=== PATIENT | male | born 1955 | race Caucasian/White ===

== ENCOUNTER 2017-11-15 13:50 | Inpatient (IN) | payer OTHER ==
[2017-11-15] VITALS (12 sets, daily range): BP systolic 90–125; BP diastolic 46–70
[~2017-11-15] VITALS: Ht 175.3 cm; Wt 80.0 kg
--- NOTE | 2017-11-15 13:50 | NUR ---
PT'S PRIMARY RN IS Lola SOLIMAN, MARINA MICHEL RN
[2017-11-15 14:08] LABS: BE -18.7 mmol/L (-2 to +3); HCO3 13.7 mmol/L (22.0-26.0); PO2 103.9 mmHg (75.0-100.0)
[2017-11-15 14:09] LABS: PCO2 65.1 mmHg (35.0-45.0)
--- NOTE | 2017-11-15 14:19 | NUR ---
#2 CODE STARTED AT 1415, ROSC AT 1419. SEE CODE BLUE FLOWSHEETS X 2
--- NOTE | 2017-11-15 14:35 | EKG ---
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 CID : [id number] Requested By: Reggie Ortiz Order Number: [id number] MD: Chung Cote Measurements Intervals [employer] Rate: 80 P: 54 CA: 178 QRS: -73 QRSD: 115 T: 79 QT: 510 QTc: 589 Interpretive Statements Sinus tachycardia Ventricular bigeminy RBBB and LAFB Diffuse ST segment depression, consider ischemia Inferior infarct, old No previous ECG available for comparison Electronically Signed On 11-15-2017 14:35:01 CDT by Chung Cote [email or web address] <ELECTRONICALLY SIGNED> By: Chung Cote MD, [facility] 11/15/17 1435 1410 1410 Chung Cote MD, [facility] /EPI
[2017-11-15 14:40] LABS: HEMATOCRIT 36.3 % (42.0-52.0); HEMOGLOBIN 11.1 gm/dL (14.0-18.0); MCH 23.8 pg (26.0-34.0); MCHC 30.5 g/dL (28.0-37.0); MCV 78.1 fL (80.0-100.0); MPV 8.3 fl. (7.2-11.1); NUCLEATED RBCS 4 /100WBC; PLATELET COUNT* 90 thou/uL (150-400); RBC 4.64 mil/uL (4.50-6.00); RDW-CV 15.3 % (10.5-14.5); WBC 9.8 thou/uL (4.0-11.0)
[2017-11-15 14:45] LABS: APTT 39.4 Seconds (25.0-31.3); INR 1.4; PROTIME 13.5 Seconds (9.20-11.50)
[2017-11-15 14:48] LABS: CALCIUM 6.7 mg/dL (8.5-10.1); CREATININE 1.2 mg/dL (0.6-1.3); POTASSIUM 4.9 mmol/L (3.5-5.1)
[2017-11-15 15:11] LABS: ALBUMIN 2.5 g/dL (3.4-5.0); CK-MB MASS 2.6 ng/mL (<0.5-3.6); MAGNESIUM 2.8 mg/dL (1.8-2.4); TOTAL BILIRUBIN 0.5 mg/dL (<0.1-1.0); TOTAL PROTEIN 5.1 g/dL (6.4-8.2); TROPONIN-I LEVEL 0.55 ng/mL (<0.06)
--- NOTE | 2017-11-15 15:20 | NUR ---
LEVOPHED INCREASED TO 4.992 MCG/MIN EPI GOING AT 5MCG/MIN
--- NOTE | 2017-11-15 15:39 | NUR ---
LEVO INCREASED TO 7.995MCG/MIN
--- NOTE | 2017-11-15 15:41 | NUR ---
BELONGINGS SENT WITH NUSRAT
--- NOTE | 2017-11-15 15:42 | NUR ---
PT ESCORTED TO CLINICAL TRIALS NURSE PER .
[2017-11-15 16:25] LABS: URINE BILIRUBIN NEGATIVE (Negative); URINE BLOOD 2+ (Negative); URINE CLARITY CLEAR; URINE COLOR YELLOW; URINE GLUCOSE-RANDOM NEGATIVE (Negative); URINE KETONES NEGATIVE (Negative); URINE LEUKOCYTES NEGATIVE (Negative); URINE NITRITE NEGATIVE (Negative); URINE PROTEIN 2+ (Negative); URINE SPECIFIC GRAVITY >= 1.030 (1.005-1.030); URINE UROBILINOGEN 0.2 E.U./dl (0.2-1.0)
[2017-11-15 16:47] LABS: ABSOLUTE BASOPHILS 0.1 thou/uL (0.0-0.2); ABSOLUTE EOSINOPHILS 0.2 thou/uL (0.0-0.7); ABSOLUTE MONOCYTES 0.1 thou/uL (0.0-1.2); ABSOLUTE NEUTROPHILS 3.4 thou/uL (1.6-8.1); METAMYELOCYTES 3 %; PLATELET ESTIMATE DECREASED
[2017-11-15 16:48] LABS: POIKILOCYTOSIS Occasional; POLYCHROMASIA Occasional; TARGET CELLS Occasional
[2017-11-15 16:52] LABS: SQUAMOUS 0-3 Few /LPF (0-3)
[2017-11-15 16:53] LABS: BACTERIA 1-9 Few /HPF (None Seen); HYALINE CASTS 0-3 Few /LPF (None Seen); URINE WBC 0-5 Rare /HPF (0-5)
[2017-11-15 16:54] LABS: AMORPHOUS URATES Few /LPF (None Seen); MUCUS 0-3 Light strn/LPF (None Seen)
[2017-11-15 16:55] LABS: HEMATOCRIT 37.2 % (42.0-52.0); HEMOGLOBIN 11.3 gm/dL (14.0-18.0); MCH 23.5 pg (26.0-34.0); MCHC 30.3 g/dL (28.0-37.0); MCV 77.6 fL (80.0-100.0); MPV 8.7 fl. (7.2-11.1); NUCLEATED RBCS 4 /100WBC; RBC 4.79 mil/uL (4.50-6.00); RDW-CV 15.5 % (10.5-14.5); WBC 9.2 thou/uL (4.0-11.0)
[2017-11-15 17:03] LABS: PLATELET COUNT* 167 thou/uL (150-400)
[2017-11-15 17:07] LABS: BE -18.3 mmol/L (-2 to +3); HCO3 12.8 mmol/L (22.0-26.0)
[2017-11-15 17:09] LABS: pH 7.002 (7.340-7.450)
[2017-11-15 17:15] LABS: CREATININE 1.3 mg/dL (0.6-1.3)
[2017-11-15 17:16] LABS: CALCIUM 6.5 mg/dL (8.5-10.1); POTASSIUM 4.2 mmol/L (3.5-5.1)
[2017-11-15 17:25] LABS: APTT 37.9 Seconds (25.0-31.3); INR 1.5; PROTIME 14.8 Seconds (9.20-11.50)
[2017-11-15 17:26] LABS: MAGNESIUM 2.3 mg/dL (1.8-2.4); PHOSPHORUS* 11.5 mg/dL (2.5-4.9)
[2017-11-15 17:30] LABS: TROPONIN-I LEVEL 3.75 ng/mL (<0.06)
[2017-11-15 17:41] LABS: FIBRINOGEN 118 mg/dL (200-340)
[2017-11-15 17:52] LABS: ABSOLUTE LYMPHOCYTES 3.2 thou/uL (0.8-5.3); ABSOLUTE MONOCYTES 0.6 thou/uL (0.0-1.2); ABSOLUTE NEUTROPHILS 5.4 thou/uL (1.6-8.1)
[2017-11-15 17:53] LABS: PLATELET ESTIMATE ADEQUATE
[2017-11-15 17:54] LABS: ANISOCYTOSIS 1+; MICROCYTES 1+
[2017-11-15 17:56] LABS: POLYCHROMASIA Occasional
[2017-11-15 17:57] LABS: AMP/METHAMP Negative (Negative); BARBITURATES Negative (Negative); BENZODIAZEPINES Negative (Negative); COCAINE Negative (Negative); METHADONE Negative (Negative); OPIATES Negative (Negative); PCP Negative (Negative); THC Negative (Negative)
--- NOTE | 2017-11-15 19:38 | NUR ---
PT ADMITTED FROM PROFESSOR OF VISUAL ARTS AT 1630 PT ON HYPOTHERMIA PROTOCOL, ALREADY PAST TARGET TEMP. PT VENTILATED, 7.0 ETT 23 AT THE LIP. LEVOPHED AT 16MCG/MIN, EPINEPHERINE AT 5MCG/MIN. PT WITH RIJ TRIPLE CENTRAL LINE. OG TO LIS WITH DARK BLOODY GASTRIC CONTENT. RECTUM OOZING BLOODY LIQUID STOOL. PT UNRESPONSIVE, PUPILS 4MM WITHOUT REACTION, NO GAG, NO COUGH, NO WITHDRAW TO PAIN. MTN CALLED. BROWNE DRAINING CLEAR YELLOW URINE. RIGHT GROIN SITE CHECKED PER PROTOCOL. CDI, SOFT, NO BLEEDING AND PULSATILE. RIGHT RADIAL ARTERIAL LINE STARTED BY PHYSICIAN. ALL CRITICAL RESULTS CALLED TO APPROPRIATE PHYSICIANS. STATES PT DRINKS AT LEAST 24 BEERS A DAY. VENT SETTINGS CHANGED PER PULM AFTER ABG RESULTS CALLED TO THEM WILL CONTINUE TO MONITOR.
[2017-11-15 23:08] LABS: HEMOGLOBIN 11.4 gm/dL (14.0-18.0); MCH 23.4 pg (26.0-34.0); MCHC 30.7 g/dL (28.0-37.0); MCV 76.1 fL (80.0-100.0); MPV 8.5 fl. (7.2-11.1); NUCLEATED RBCS 1 /100WBC; PLATELET COUNT* 139 thou/uL (150-400); RBC 4.86 mil/uL (4.50-6.00); RDW-CV 15.5 % (10.5-14.5); WBC 10.4 thou/uL (4.0-11.0)
[2017-11-15 23:16] LABS: APTT 30.4 Seconds (25.0-31.3); INR 1.7; PROTIME 16.2 Seconds (9.20-11.50)
[2017-11-15 23:26] LABS: CREATININE 1.7 mg/dL (0.6-1.3); MAGNESIUM 1.8 mg/dL (1.8-2.4); PHOSPHORUS* 6.2 mg/dL (2.5-4.9); POTASSIUM 3.1 mmol/L (3.5-5.1)
[2017-11-16] VITALS (55 sets, daily range): BP systolic 88–136; BP diastolic 42–86
[2017-11-16 00:40] LABS: ABSOLUTE LYMPHOCYTES 0.7 thou/uL (0.8-5.3); ABSOLUTE MONOCYTES 0.3 thou/uL (0.0-1.2); ABSOLUTE NEUTROPHILS 8.1 thou/uL (1.6-8.1); BASOPHILS 0.3 %; EOSINOPHILS 0.2 %; HEMATOCRIT 35.8 % (42.0-52.0); HEMOGLOBIN 11.1 gm/dL (14.0-18.0); LYMPHOCYTES 7.6 %; MCH 23.6 pg (26.0-34.0); MCV 76.2 fL (80.0-100.0); MONOCYTES 2.9 %; MPV 8.7 fl. (7.2-11.1); NUCLEATED RBCS 1 /100WBC; PLATELET COUNT* 128 thou/uL (150-400); RBC 4.71 mil/uL (4.50-6.00); RDW-CV 15.6 % (10.5-14.5); WBC 9.2 thou/uL (4.0-11.0)
[2017-11-16 00:56] LABS: ABSOLUTE LYMPHOCYTES 1.1 thou/uL (0.8-5.3); ABSOLUTE NEUTROPHILS 9.3 thou/uL (1.6-8.1); PLATELET ESTIMATE DECREASED
[2017-11-16 00:57] LABS: HYPOCHROMASIA 1+; LARGE PLATELETS FEW
[2017-11-16 01:05] LABS: MAGNESIUM 1.8 mg/dL (1.8-2.4)
[2017-11-16 01:23] LABS: APTT 30.6 Seconds (25.0-31.3); INR 1.7; PROTIME 16.9 Seconds (9.20-11.50)
[2017-11-16 01:34] LABS: FIBRINOGEN 78 mg/dL (200-340)
[2017-11-16 04:10] LABS: BE -12.7 mmol/L (-2 to +3); HCO3 14.1 mmol/L (22.0-26.0); PCO2 35.6 mmHg (35.0-45.0)
[2017-11-16 04:14] LABS: pH 7.215 (7.340-7.450)
[2017-11-16 04:15] LABS: PO2 220.2 mmHg (75.0-100.0)
[2017-11-16 04:42] LABS: APTT 30.6 Seconds (25.0-31.3); INR 1.6; PROTIME 15.7 Seconds (9.20-11.50)
[2017-11-16 04:45] LABS: ABSOLUTE LYMPHOCYTES 0.6 thou/uL (0.8-5.3); ABSOLUTE MONOCYTES 0.1 thou/uL (0.0-1.2); BASOPHILS 0.3 %; EOSINOPHILS 0.5 %; HEMATOCRIT 34.1 % (42.0-52.0); HEMOGLOBIN 10.5 gm/dL (14.0-18.0); LYMPHOCYTES 9.4 %; MCH 23.6 pg (26.0-34.0); MCHC 30.8 g/dL (28.0-37.0); MCV 76.4 fL (80.0-100.0); MONOCYTES 1.7 %; MPV 8.7 fl. (7.2-11.1); NUCLEATED RBCS 0 /100WBC; PLATELET COUNT* 104 thou/uL (150-400); POLYS 88.1 %; RBC 4.47 mil/uL (4.50-6.00); RDW-CV 15.5 % (10.5-14.5); WBC 6.8 thou/uL (4.0-11.0)
[2017-11-16 05:00] LABS: ALBUMIN 2.5 g/dL (3.4-5.0); CREATININE 1.9 mg/dL (0.6-1.3); MAGNESIUM 1.6 mg/dL (1.8-2.4); PHOSPHORUS* 2.7 mg/dL (2.5-4.9); TOTAL BILIRUBIN 0.6 mg/dL (<0.1-1.0); TOTAL PROTEIN 4.8 g/dL (6.4-8.2)
[2017-11-16 05:26] LABS: CALCIUM 5.8 mg/dL (8.5-10.1); POTASSIUM 2.4 mmol/L (3.5-5.1)
--- NOTE | 2017-11-16 10:00 | NUR ---
PT'S VAN DEFERRED CONSENT FOR BLOOD PRODUCTS TO SISTER ROCÍO STEEN. PT'S IS [employer] AND STATED "SHE DOES NOT BELIEVE IN BLOOD FOR MEDICINE." SHE STATED THAT THE PATIENT IS LATTER-DAY AND THAT HE WOULD WANT THAT BUT SHE COULD NOT CONSENT FOR THAT. VAN GAVE ME THE CONTACT INFORMATION FOR ROCÍO STEEN WHOM CONSENTED FOR BLOOD PRODUCT ADMINISTRATION.
--- NOTE | 2017-11-16 12:02 | NUR ---
PATIENT CARE ASSUMED AT 1200. REPORT RECIEVED FROM DHEERAJ JUNG.
--- NOTE | 2017-11-16 15:07 | NUR ---
REWARMING INITIATED AT 1500.
[2017-11-16 16:44] LABS: BE -4.7 mmol/L (-2 to +3); HCO3 19.2 mmol/L (22.0-26.0); PCO2 31.3 mmHg (35.0-45.0); pH 7.406 (7.340-7.450)
[2017-11-16 16:45] LABS: PO2 142.4 mmHg (75.0-100.0)
--- NOTE | 2017-11-16 18:02 | NUR ---
PATIENT NOT PROGRESSING TOWARDS GOALS. GCS 3 THROUGHOUT SHIFT. NO GAG, PUPIL, CORNEAL, PAIN RESPONSES. NO MOVEMENT. NOT RESTRAINED OR SEDATED. 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 ON LEVOPHED AT 15 MCG/MIN, 14.4 ML/HR. EPI GTT TITRATED OFF TODAY. VENTILATOR SETTINGS REMAIN AC 20, TV 600, PEEP 5, FIO2 35%. ABGS IMPPROVED. LUNG SOUNDS REMAIN CLEAR. NO SECRETIONS FROM IN-LINE SUCTION. OH OUTPUT 250 ML OF BLOOD MIXED WITH BILE THIS SHIFT. BOWEL SOUNDS ACTIVE. 1 LARGE LIQUID DARK BROWN STOOL WITH BLOOD NOTED THIS SHIFT. BROWNE OUTPUT 2250 THIS SHIFT, DESPITE CREATININE TRENDING UP. CODE ICE PROTOCOL, STARTED REWARMING AT 1500 AT 91.4 DEGREES F, CURRENTLY 92.8 DEGREES F. WARM BLANKET PLACED ON PATIENT FOR SLOW REWARMING. RIGHT IJ REMAINS IN WORKING CONDITION WITH DRIED DRAINAGE UNDER INTACT DRESSING. ORDERS FOR CRYOPRECIPITATE TODAY, ADMINISTERED BY AM NURSE. FIBRINOGEN RECHECK 119. HEPARIN GIVEN. ORDERS TO HOLD HEPARIN IF FIBRINOGEN LESS THAN 100. POTASSIUM REPLACEMENT FOR 2.4 K+ TODAY. RECHECKED AFTER 3 BAGS OF 20 MEQ, RESULTED 2.7. CONTINUING REPLACEMENT. AND DAUGHTER PRESENT THIS EVENING FOR AN HOUR, ALL QUESTIONS ANSWERED. INFORMED THAT PATIENT IS RE-WARMING AT THIS TIME.
--- NOTE | 2017-11-16 19:19 | NUR ---
RECIEVED REPORT AND ASSUMED CARE OF PT AT 1900. PT INTUBATED ON VENTILATOR. NO SEDATION, PARALYTIC OR RESTRAINTS AT THIS TIME. NO GAG, COUGH, CORNEAL REFLEX OR RESPONSE TO PAINFULL STIMULI. [place] TRANSPLANT INVOLVED SINCE . FAMILY PRESENT PRIOR TO SHIFT CHANGE, UPDATED ON PT'S CURRENT STATUS.
[2017-11-16 21:12] LABS: HEMATOCRIT 31.4 % (42.0-52.0); HEMOGLOBIN 10.1 gm/dL (14.0-18.0); MCH 23.8 pg (26.0-34.0); MCHC 32.2 g/dL (28.0-37.0); MCV 73.8 fL (80.0-100.0); MPV 8.6 fl. (7.2-11.1); RBC 4.26 mil/uL (4.50-6.00); RDW-CV 15.4 % (10.5-14.5); WBC 3.7 thou/uL (4.0-11.0)
[2017-11-16 21:32] LABS: ALBUMIN 2.2 g/dL (3.4-5.0); CALCIUM 6.4 mg/dL (8.5-10.1); MAGNESIUM 1.6 mg/dL (1.8-2.4); PHOSPHORUS* 3.4 mg/dL (2.5-4.9); POTASSIUM 3.7 mmol/L (3.5-5.1); TOTAL BILIRUBIN 2.2 mg/dL (<0.1-1.0); TOTAL PROTEIN 4.4 g/dL (6.4-8.2)
[2017-11-16 21:37] LABS: APTT 36.7 Seconds (25.0-31.3); FIBRINOGEN 159 mg/dL (200-340); INR 1.3; PROTIME 13.1 Seconds (9.20-11.50)
--- NOTE | 2017-11-16 22:44 | NUR ---
CALLED ABNORMAL CALCIUM LEVEL TO INSIDE PHONE SALES DR. DAVISVED PRN ORDER FOR CALCIUM GLUCONATE.
[2017-11-17] VITALS (47 sets, daily range): BP systolic 84–160; BP diastolic 44–89
[2017-11-17 00:34] LABS: APTT 40.6 Seconds (25.0-31.3); INR 1.3; PROTIME 12.7 Seconds (9.20-11.50)
--- NOTE | 2017-11-17 00:55 | NUR ---
PT ONCONTINENT OF LARGE WATERY STOOL WITH VISIBLE BLOOD. COMPLETE BED BATH DONE, LINENS CHANGED. FECAL MANAGEMENT SYSTEM INSERTED.
[2017-11-17 05:23] LABS: BE 0 mmol/L (-2 to +3); HCO3 24.2 mmol/L (22.0-26.0); PCO2 37.6 mmHg (35.0-45.0); PO2 107.1 mmHg (75.0-100.0); pH 7.427 (7.340-7.450)
[2017-11-17 05:29] LABS: HEMATOCRIT 30.5 % (42.0-52.0); HEMOGLOBIN 10.1 gm/dL (14.0-18.0); MCH 24.2 pg (26.0-34.0); MCHC 33.2 g/dL (28.0-37.0); MPV 8.8 fl. (7.2-11.1); RBC 4.17 mil/uL (4.50-6.00); RDW-CV 14.9 % (10.5-14.5); WBC 4.7 thou/uL (4.0-11.0)
[2017-11-17 05:38] LABS: ALBUMIN 2.2 g/dL (3.4-5.0); CALCIUM 6.5 mg/dL (8.5-10.1); CREATININE 2.3 mg/dL (0.6-1.3); MAGNESIUM 1.4 mg/dL (1.8-2.4); POTASSIUM 3.7 mmol/L (3.5-5.1)
--- NOTE | 2017-11-17 06:54 | NUR ---
AT 0600 STARTED EPINEPHRINE DRIP TO KEEP MAP > 65.
--- NOTE | 2017-11-17 10:32 | CON ---
[address] [address] CONSULTATION Name: DAISYDOUGLAS Room: [address] IN M.R.#: [id number] Admission: 11/15/17 Attend Phys: Gerber Virk MD Discharge: Date of : 51 Report #: [id number] THIS REPORT FOR: //name// CC: Amy Virk DATE OF SERVICE: 11/15/2017 CARDIOLOGY CONSULTATION INDICATION: Elevated troponin and out of hospital arrest. HISTORY OF PRESENT ILLNESS: The patient is a 62-year-old gentleman who was apparently working at his [employer] in [place] when he was found down. EMS was summoned to the scene where a code was started. The patient was intubated in the field. The patient was transferred to the Emergency Room. An initial EKG showed an idioventricular rhythm with ventricular bigeminy. The patient was profoundly acidotic and had electrolyte abnormalities consistent with his state. The patient was resuscitated and placed on an epinephrine drip. The patient's follow up EKG shows some narrowing of his QRS complexes with some subtle ST segment depression diffusely. No history is available. PAST MEDICAL HISTORY: Unknown. SOCIAL HISTORY: Unknown. FAMILY HISTORY: Unknown. REVIEW OF SYSTEMS: Unobtainable. PHYSICAL EXAMINATION: GENERAL: The patient is a thin white male who is presently intubated and unresponsive. HEENT: The head is normocephalic, atraumatic. NECK: Without obvious jugular venous distention. PULMONARY: Breath sounds present bilaterally in the chest. CARDIAC EXAMINATION: Reveals a distant S1 and S2 without obvious gallop or murmur. ABDOMEN: Soft. EXTREMITIES: Show no edema. Peripheral pulses 2+ on epi drip. LABORATORY DATA: Initial ABG shows a pH of 6.94, pCO2 of 65, pO2 of 103.9. CBC shows a white blood cell count 9.8, hemoglobin 11.1, platelet count 90,000; MCV 78. Protime 13.5, INR 1.4, APTT 39.4. Sodium 148, potassium 4.9, chloride 111, bicarbonate 17, BUN 13, creatinine 1.2, serum glucose 93. LFTs moderately elevated. Initial troponin 0.55. NT-proBNP 67. Lactic acid 15.3. [place] [address] CONSULTATION Name: DOUGLAS VILLA Room: [address] IN [facility].#: [id number] Admission: 11/15/17 Attend Phys: Gerber Virk MD Discharge: Date of : 51 Report #: [id number] shows perihilar pulmonary edema. IMPRESSION AND RECOMMENDATIONS: 1. Out of hospital arrest. Etiology not clear. Past medical history not known. The patient has a slight elevation in troponin. We will bring him to clinical laboratory manager for coronary angiography to evaluate for the possibility of myocardial infarction contributing. We will obtain noninvasive quick look echocardiogram in the process to decide whether left ventricular support is necessary in addition to the epinephrine drip he is on presently. 2. Gastrointestinal bleeding as evidenced by rectal bleeding and bleeding from his nasogastric tube. Hemoglobin on admission was reasonable. He does have a low MCV suggesting iron deficiency anemia. Repeat CBC in a serial fashion. <ELECTRONICALLY SIGNED> By: Chung Cote MD, FACC 11/17/17 1032 1543 [id number] Cote MD, FACC /nt
--- NOTE | 2017-11-17 11:00 | NUR ---
INTERDISICIPLINARY ROUNDS: PT ON VENT, WAS REWARMED THIS AM. PER DHEERAJ BENAVIDEZ, PT IS NON RESPONSIVE. NO FAMILY IN ROOM. WILL FOLLOW
--- NOTE | 2017-11-17 11:30 | CON ---
[address] [address] CONSULTATION Name: DOUGLAS VILLA Room: [address] IN M.R.#: [id number] Admission: 11/15/17 Attend Phys: Gerber Virk MD Discharge: Date of : 51 Report #: [id number] THIS REPORT FOR: //name// CC: Amy Shah MD [facility] Gerber Virk MD DATE OF SERVICE: 11/16/2017 PULMONARY CONSULTATION ATTENDING PHYSICIAN: Gerber Virk M.D. PATIENT LOCATION: The patient is in ICU bed 2. INDICATION FOR CONSULTATION: Acute hypoxic respiratory failure, cardiac arrest. CLINICAL SUMMARY: The patient is a 62-year-old male, prior smoker, who has had a cardiac arrest outside the hospital. The patient was working on his car and was found unresponsive at that time. He did not sustain any crush injury as far as we know. He was pulseless, had PEA and CPR was initiated and he was continued CPR en route to the ED, where he had 40 minutes of CPR performed before returning of spontaneous circulation. He had several rounds of epinephrine for his PEA and was on 2 pressors. EKG showed a variable rhythm. He was in sinus rhythm at times. He went to the shop laborer. He had no coronary artery disease. This may have been secondary ventricular fibrillation from unknown causes. The patient is unresponsive at this time, on no sedation, under code ice protocol currently and still has acidotic ABGs, although they are improved from yesterday. PAST MEDICAL HISTORY: He has had a history of GI bleed. He has had a history of elevated troponins and cardiac arrest. No definite coronary artery disease is noted. ALLERGIES: He has no known medical allergies. SOCIAL HISTORY: He has some history of ethanol use; otherwise, it is unknown. Question whether he smoked in the past. MEDICATIONS: Current medication list includes albuterol aerosols 2.5 mg every 4 hours. He was on vecuronium; I think that has been discontinued. He has had some calcium gluconate. He is on Levophed and epinephrine for pressors. He has had potassium chloride and magnesium sulfate. He was given some IV heparin 5000 units subq every 8 hours, Protonix was 80 mg 1 time push daily, midazolam p.r.n. and also was on Blu-Synephrine [place] [address] CONSULTATION Name: DOUGLAS VILLA Room: [address] [place] [facility]#: [id number] Admission: 11/15/17 Attend Phys: Gerber Virk MD Discharge: Date of : 51 Report #: [id number] FAMILY HISTORY: Noncontributory. REVIEW OF SYSTEMS: A 14-point review of systems reviewed and negative, except for pertinent positives noted in the HPI. PHYSICAL EXAMINATION: GENERAL: This is a 62-year-old male who is unresponsive and not assisting the ventilator. He is on no sedation. VITAL SIGNS: Blood pressure is 120/75 on 2 pressors, heart rate is 90 and respirations are 20 over a backup rate of 20. On 35%, his O2 sat is 96%. His temperature actually is 91 degrees on the cooling protocol and he is 5 feet 10 inches tall, weighs 80 kilograms or 176 pounds and BMI is 26. HEENT: Pupils are midpoint, sluggishly reactive. Orally intubated. OG tube in place. NECK: Supple, without nodes. No increase in jugular venous pressure. CHEST: Clear to auscultation. CARDIOVASCULAR: Regular rate and rhythm, without murmur, gallop or rub. Heart rates 90s. ABDOMEN: Soft with cooling vest on place. No masses or megaly is noted. EXTREMITIES: No calf tenderness. No cyanosis, clubbing or edema. LABORATORY DATA: Laboratory today shows a hemoglobin at 10.5, white count 6800 and platelets are 104,000. Normal differential. Sodium is 147; potassium is 2.4, being repleted, anion gap is 20; BUN is 21; creatinine is 1.9, although good urine output; glucose is 210 and calcium is 5.8. Magnesium is 1.6. AST is 5222, ALT is 1523 and alkaline phosphatase elevated at 149. NT pro-BNP is 339. Albumin is 2.5. Troponins were elevated. ABGs this morning at 04:00 a.m. on 50% FiO2, tidal volume 600, assist control 20, PEEP of 6 shows a pO2 of 20, a pH of 7.21, pCO2 is 35, bicarbonate was 14 and sat was 98%. Chest x-ray is totally clear. Lines are in place. ET tube is in mid trachea. There is no CHF, no infiltrates and no pneumothorax. IMPRESSION: Cardiac arrest, pulseless electrical activity, probably secondary ventricular fibrillation. Consider other causes of either hypovolemia or sepsis. Occult pulmonary emboli would be considered, although the patient is not hypoxic at this time. PLAN: Continue code ice protocol. We will recheck a blood gas here in about 8 hours and make sure we do blood gases about every 12 hours for now, so we can improve on his acidosis and have some respiratory alkalosis. I would like to keep the pH above 725-730. So, hopefully, we can resolve his hypotension. Okay with me to give more fluids. He is not in any fluid overload. Once he wakes up, we will see if he does not respond after the cooling protocol, starts to be reversed at 06:00 tonight and will see in a day or two if we can start to wean him. [address] [address] CONSULTATION Name: SRINI VILLAW Room: [address] IN [facility].#: [id number] Admission: 11/15/17 Attend Phys: Gerber Virk MD Discharge: Date of : 51 Report #: [id number] This has been a 36-minute critical care consult. Further workup in the future would include CT angio of the chest to rule out occult pulmonary emboli and may need a sleep study at some point in time for other causes. <ELECTRONICALLY SIGNED> By: Iván Sheldon MD 11/17/17 1130 0921 [id number] Sheldon MD /nt
[2017-11-17 14:10] LABS: HEPATITIS B SURFACE AG Negative (Negative)
--- NOTE | 2017-11-17 15:14 | EKG ---
[place] [address] ELECTROCARDIOGRAM REPORT Name: DAISYDOUGLAS Room: [address] ADM IN ..#: [id number] Admission: 11/15/17 Attend Phys: Gerber Virk MD Discharge: Date of : 51 Report #: [id number] THIS REPORT FOR: //name// [facility] ED Test Date: 2017-11-15 Test Time: 15:29:24 Pat Name: DOUGLAS VILLA Department: Room: [address] Gender: M Critical Care Physician: : [id number] Requested By: Reggie Ortiz Order Number: [id number] Reading MD: Tello Murphy Measurements Intervals [place] Rate: 84 P: 20 RI: 158 QRS: -44 QRSD: 111 T: 87 QT: 475 QTc: 562 Interpretive Statements Sinus rhythm Left axis deviation RSR' in V1 or V2, right VCD or RVH Nonspecific T abnormalities, lateral leads Prolonged QT interval Compared to ECG 11/15/2017 14:10:54 Left-axis deviation now present Right ventricular hypertrophy now present RSR' in V1 or V2 now present T-wave abnormality now present Electronically Signed On 11-17-2017 15:13:51 CDT by Tello Murphy [email or web address] <ELECTRONICALLY SIGNED> By: Tello Murphy MD, [facility] 11/17/17 1513 1529 1529 Tello Murphy MD, [facility] /EPI
--- NOTE | 2017-11-17 17:34 | CARD ---
[address] [address] CARDIAC CATH REPORT Name: DOUGLAS VILLA Room: [address] IN .R.#: [id number] Admission: 11/15/17 Attend Phys: Gerber Virk MD Discharge: Date of : 51 Report #: [id number] THIS REPORT FOR: //name// APPROVED REPORT Study performed: 11/15/2017 15:30:00 Patient Details Patient Status: In-Patient Room #: The patient is a 62 year-old male Event Personnel Chung Cote Bioanalyst, Ludy Yan RN Build Manager, Leni Orellana RN Build Manager, , Margoth Rodgers RTR Scrub, Iván Patel (R) Scrub, Amy Velazco RN vegetable harvest machine operator Performed Left Heart Catheterization, Coronary Angiography Art Access - L femoral artery* , Left Heart Cath w/or w/o Coronaries Hemostasis w/ Mynx Indication Abnormal ECG, Non-STEMI , Out of hospital arrest Procedure Narrative The patient was brought emergently to the Cardiac Catheterization Laboratory and was prepped and draped in a sterile manner. The right femoral was infiltrated with 1% Lidocaine subcutaneous anesthesia. A 6 Fr sheath was inserted into the right femoral artery. Coronary angiography was performed using coronary diagnostic catheters. The right coronary system was accessed and visualized with a JR4 Diagnostic catheter. The left coronary system was accessed and visualized with a JL 4 Diagnostic catheter. The left ventricle was accessed and visualized with a JR 4 Diagnostic catheter. Left ventricular/Aortic Valve gradient assessed via catheter pullback. Pre-demployment femoral angiogram was performed . Closure device was deployed with a 6 Fr Mynx. The patient tolerated the procedure well and there were no complications associated with the procedure. There was no hematoma. Contrast Type and Amount: Visipaque 75 ml Coronary Angiography The patient's coronary anatomy [place] [address] CARDIAC CATH REPORT Name: DOUGLAS VILLA Room: [address] IN M.R.#: [id number] Admission: 11/15/17 Attend Phys: Gerber Virk MD Discharge: Date of : 51 Report #: [id number] Diagnostic Cath Left Main Normal normal proximally LAD . 30% narrowing after second diagonal branch and normal distally. Diagonal 1 Normal Diagonal 2 50 % ostial narrowing Diagonal 3 Normal Circumflex Normal OM1 Normal OM2 Normal OM3 Normal Right Coronary Normal R PDA 10% plaquing in the mid portion RPLV Normal Left Ventriculography Left Ventriculography was not performed. Hemodynamics The aortic pressure is 92/43 mmHg with a mean of 63 mmHg. The left ventricular pressure is 109/-4 mmHg with a mean of mmHg. The left ventricular end diastolic pressure is 12 mmHg. Conclusion 1. Minimal atherosclerotic coronary plaquing as outlined above. 2. Normal left ventricular end-diastolic pressure. 3. No gradient in the pullback across the aortic valve. 4. No left ventriculogram performed. Recommendations 1. Continue medical management and risk factor modification. <ELECTRONICALLY SIGNED> By: Chung Cote MD, [facility] 11/17/17 1734 1734 [id number] Cote MD, FACC /INF
--- NOTE | 2017-11-17 19:45 | NUR ---
RECIEVED REPORT AND ASSUMED CARE OF PT AT 1915. PT NONRESPONSIVE, NO PUPIL, GAG, COUGH OR CORNEAL REFLEX. NO RESPONSE TO PAINFULL STIMULI. VASOPRESSIN RESTARTED AT 1930 TO MAINTAIN MAP > 65.
--- NOTE | 2017-11-17 21:11 | NUR ---
DR CRAIG IN UNIT AT 2030 FOR NEURO CONSULT ORDERED BY DR KIM. DR CRAIG REVIEWED CT RESULTS AND CALLED PT'S REGARDING SUBARAKNOID BLEED. DR GHOSH NOTIFIED ALSO AND INFORMED OF BLEED. DR CARDENAS SAID PT IS TOO UNSTABLE TO BE TRANSFERED AT THIS POINT. RADIOLOGY NOTIFIED TO UPLOAD IMAGES AND SEND TO TRANSFER TEAM. NURSING SUPERVISOR ORDNANCE TRUCK INSTALLATION HILDA CANO SPOKE WITH DR CRAIG AND TRANSFER TEAM TO EXPIDITE IMAGES.
--- NOTE | 2017-11-17 21:30 | NUR ---
DR CRAIG CALLED PT'S AT 2049 AND INFORMED HER OF CAT SCAN FINDINGS.
[2017-11-18] VITALS (34 sets, daily range): BP systolic 102–158; BP diastolic 58–91
--- NOTE | 2017-11-18 00:34 | NUR ---
PT'S SON ARRIVED FROM [place]. BRIEF EXPLANATION TO EVENTS LEADING TO HOSPITALIZTION GIVEN.
--- NOTE | 2017-11-18 00:55 | NUR ---
EXPLAINED TREATMENTS AND MEDICATIONS USED TO TREAT PT. INFORMED PT'S SON OF SWELLING AND BLEEDING IN PT'S BRAIN.
[2017-11-18 05:17] LABS: HEMATOCRIT 28.5 % (42.0-52.0); HEMOGLOBIN 9.3 gm/dL (14.0-18.0); MCH 23.9 pg (26.0-34.0); MCHC 32.7 g/dL (28.0-37.0); MPV 9.3 fl. (7.2-11.1); RBC 3.9 mil/uL (4.50-6.00); RDW-CV 15.1 % (10.5-14.5); WBC 6.9 thou/uL (4.0-11.0)
[2017-11-18 05:45] LABS: ALBUMIN 2.2 g/dL (3.4-5.0); MAGNESIUM 1.9 mg/dL (1.8-2.4); POTASSIUM 4.1 mmol/L (3.5-5.1); TOTAL BILIRUBIN 2.6 mg/dL (<0.1-1.0); TOTAL PROTEIN 4.8 g/dL (6.4-8.2)
[2017-11-18 05:46] LABS: CREATININE 3.3 mg/dL (0.6-1.3)
--- NOTE | 2017-11-18 07:50 | NUR ---
7066 ASSUMED CARE OF PATIENT. SEE DOCUMENTED ASSESSMENT. DR KIM TO SEE PATIENT AND DISCUSSED PLAN OF CARE. WILL KEEP NPO. WEANING LEVOPHED.PT IS UNRESTRIANED AND NOT SEDATED
[2017-11-18 08:15] LABS: BE -1.3 mmol/L (-2 to +3); HCO3 22.5 mmol/L (22.0-26.0); PCO2 34.1 mmHg (35.0-45.0); PO2 109.9 mmHg (75.0-100.0); pH 7.437 (7.340-7.450)
--- NOTE | 2017-11-18 09:42 | NUR ---
PATIENT IS NOW DNR. MTN NOTIFIED
--- NOTE | 2017-11-18 10:52 | NUR ---
INTERDISICPLINARY ROUNDS: PT IS DNR NOW. WILL FOLLOW
--- NOTE | 2017-11-18 16:28 | NUR ---
EXTUBATED AT 1437 AND PLACED ON COMFORT CARE. PT AT 1445. SEE FLOW SHEET. FAMILY PRESENT.
--- NOTE | 2017-11-21 09:40 | CON ---
[address] [address] CONSULTATION Name: DAISYDOUGLAS Room: [address] IN M.R.#: [id number] Admission: 11/15/17 Attend Phys: Gerber Virk MD Discharge: 11/18/17 Date of : 51 Report #: [id number] THIS REPORT FOR: //name// CC: Amy Virk DATE OF SERVICE: 11/17/2017 HISTORY OF PRESENT ILLNESS: This is a 62-year-old male patient for whom a routine Neurology consultation was requested today to evaluate the patient for hypoxic brain injury. I discussed the patient with the nurses looking after this patient. I called the patient's and talked to her. I called Neurosurgery and I talked to them. I talked to hospitalist field operations coordinator, Dr. Dawson and discussed the patient with him. I reviewed the patient's records and it looks like this patient had a sudden onset of cardiac arrest on 11/15/2017. Cardiology was consulted and they did a cardiac catheterization on him and that did not show that much disease and was mostly unremarkable. His troponin was up, but the maximum troponin was 26.69. He has developed shock liver and renal failure since then. He was on cooling protocol and a cooling protocol was discontinued at 5:00 and nurses tell me that he is not on any sedation and he has no response. Because of that Neurology consultation was requested to evaluate the patient for anoxic brain injury today. REVIEW OF SYSTEMS: Indicate that this patient had this cardiac arrest. It was unwitnessed arrest, but the patient basically collapsed. The patient's blood pressure was low and the nurses tell me that he is on 3 pressors now but looks like the blood pressure has come up since then. His records were reviewed and 14-point review of systems has been summarized in other people's consultation. PAST MEDICAL HISTORY: According to the , he did not have this kind of episode before. FAMILY HISTORY: Unremarkable. SOCIAL HISTORY: He is and I talked to his . PHYSICAL EXAMINATION: NEUROLOGICAL: Indicate that he has no response of any kind. His pupils are midpoint and nonreactive. He is on vent. His blood pressure was low but looks like his blood pressure is coming up. LABORATORY DATA: A CT scan of the head was reviewed and it demonstrated pretty extensive subarachnoid hemorrhage, which may be secondary to a ruptured aneurysm, which may have been the original event, which caused the cardiac arrest. Unfortunately, this patient also has a massive brain edema, which may have been secondary to hypoxic encephalopathy caused by [place] [address] CONSULTATION Name: KIERADADADOUGLAS Room: [address] M.R.#: [id number] Admission: 11/15/17 Attend Phys: Gerber Virk MD Discharge: 11/18/17 Date of : 51 Report #: [id number] IMPRESSION: 1. Severe subarachnoid hemorrhage. Because of that, the possibility of aneurysm causing the subarachnoid hemorrhage and initial cardiac arrest need to be considered and excluded. 2. 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 RECOMMENDATIONS: I called Neurosurgery at [facility]. They are willing to accept this patient if the patient stabilizes. The patient's blood pressure was low and I discussed with Dr. Dawson and he did not think the patient was stable enough to be transferred and since his blood pressure was low, that was a concern and I agree with that. This patient's prognosis is very poor. He has a high-grade subarachnoid hemorrhage and that makes the prognosis is poor. On top of that, he has severe hypoxic encephalopathy with a CT showing massive brain edema that will make his prognosis even more poor. I called the and talked to the neurosurgeon. They agree that the patient's prognosis is very poor, but they are willing to accept this patient and the transfer. I talked to the about it. She has also accepted the prognosis and he wanted to think about that. Nimodipine can be given if the patient's blood pressure came up, but the family need to decide if they want to be aggressive or want to put him on palliative care. It was decided to stabilize the patient and talked to the family in the morning and talked to the plating stripper to see if they think the patient is stable to be transferred. In the meantime, I will get an EEG done to see if the brain even shows any brain activity and I talked to the family and they are deciding whether they want to be even aggressive in this patient regarding the transfer. More than 70 minutes of time was spent taking care of this patient today and majority of that time was spent counseling this patient's family as well as coordinating his care by talking to multiple health health care sanitary technician. <ELECTRONICALLY SIGNED> By: Armando Hooker MD 11/21/17 0940 [id number] Hooker MD /nt
--- NOTE | 2017-11-21 09:40 | EEG ---
[address] [address] EEG STUDY REPORT Name: DAISYDOUGLAS Room: [address] IN M.R.#: [id number] Admission: 11/15/17 Attend Phys: Gerber Virk MD Discharge: 11/18/17 Date of : 51 Report #: [id number] THIS REPORT FOR: //name// CC: Amy Virk DATE OF SERVICE: 11/17/2017 This patient is being evaluated for the cardiac arrest. EEG was done by placing the electrodes by standard 10-20 system of electrode placement. Both referential and sequential montages were used for recording. It was started at 7 microvolt and it showed no activity. Then, the sensitivity was changed to 3 microvolts and even to 2 microvolt. EEG is of reasonable quality and there is EKG artifact present, but I do not see any cortical activity. IMPRESSION: This patient's EEG does not demonstrate any definite cortical activity. Thank you very much for this referral. <ELECTRONICALLY SIGNED> By: Armando Hooker MD 11/21/17939 7 9Armando Hooker MD /nt
--- NOTE | 2017-12-09 14:24 | CON ---
[address] [address] CONSULTATION Name: OMKARDOUGLAS Room: [address] IN M.R.#: [id number] Admission: 11/15/17 Attend Phys: Gerber Virk MD Discharge: 11/18/17 Date of : [birth year] Report #: [id number] THIS REPORT FOR: //name// CC: Blakejohngavin Virk REASON FOR CONSULTATION: Acute kidney injury. CONSULTING PHYSICIAN: Gerber Virk MD. HISTORY OF PRESENT ILLNESS: A 62-year-old gentleman who had an out of hospital arrest. He was coded for around 40 minutes and was taken to the forestry laborer where he was found to have nonocclusive cardiac disease. He is currently on 2 pressors, intubated and on hypothermia protocol. He is not responsive. He is making some urine, but I was asked to see him because of an elevation of his creatinine. PAST MEDICAL HISTORY: History of alcohol use. FAMILY HISTORY: Not pertinent in 62-year-old gentleman. SOCIAL HISTORY: Unknown if he ever smoked. He is . CURRENT MEDICATIONS: Reviewed. PHYSICAL EXAMINATION: VITAL SIGNS: Blood pressure 121/75, pulse 92, temperature 33, respirations 20. GENERAL: Unresponsive. EYES: Closed. EARS: Externally normal. CARDIOVASCULAR: Regular rate. LUNGS: Diminished. ABDOMEN: Soft. LYMPHATICS: No significant pitting edema. GENITOURINARY: Niño in place. NEUROLOGIC: Unresponsive. LABORATORY DATA: White cell count 6.8, hemoglobin 10.5, platelets 104. Sodium 147, potassium 2.4, chloride 110, bicarbonate 17, BUN 21, creatinine 1.9, glucose 210, calcium 5.8, phosphorus 2.7, magnesium 1.6. Liver enzymes are significantly elevated. Albumin is 2.5. ASSESSMENT AND PLAN: 1. Acute kidney injury secondary to acute tubular necrosis with creatinine up to 1.9, admission creatinine was 1.2. Urine drug screen was negative. Ejection fraction is 55% by echo. He did undergo cardiac catheterization as well [place] [address] CONSULTATION Name: DOUGLAS ESPITIA Room: [address] IN [facility].#: [id number] Admission: 11/15/17 Attend Phys: Gerber Virk MD Discharge: 11/18/17 Date of : [birth year] Report #: [id number] 2. Out of hospital cardiac arrest, on hypothermia protocol. 3. Gastrointestinal bleed. 4. Shock on 2 vasopressors. 5. Suspected anoxic injury. 6. Proteinuria on urinalysis. 7. Hematuria on urinalysis. 8. Metabolic and lactic acidosis with an ABG of 7.2-14 and a lactic acid of 15. 9. Hypernatremia 10. Hypokalemia. 11. Hypocalcemia. 12. Hypomagnesemia. 13. Shock liver. 14. Hypoalbuminemia with an albumin of 2.5. PLAN: 1. Potassium, calcium and magnesium are all being replaced per protocol. 2. Continue IV fluids. 3. Currently on Levophed and epinephrine. He is making urine. Creatinine has trended up a bit. 4. On antibiotics. 5. No indications for renal ultrasound at this time and is unlikely to change with clinical course at present. 6. Repeat labs have been ordered. 7. Prognosis appears to be poor. We will follow closely. The patient is critically ill. Thirty-five minutes of patient care time spent. Thank you for requesting my opinion in the care and management of this patient. <ELECTRONICALLY SIGNED> By: Danny Jose MD 12/09/17 1424 [id number] Jose MD /nt
== END 2017-11-18 17:40 | DRG 208 ==
LOC: M.ERS 13:50 → M.ICU 15:38 → M.TBA-ER 15:38 → M.ICU 16:29 → EDBD 11-18 17:40
PROVIDERS: Family Medicine; Internal Medicine Nephrology; Internal Medicine Pulmonary Disease; ADMIT Internal Medicine
PROC: 02HV33Z Insertion of Infusion Device into Superior Vena Cava, Percutaneous Approach (ICD-10-PCS; principal; 2017-11-15)
PROC: 0BH17EZ Insertion of Endotracheal Airway into Trachea, Via Natural or Artificial Opening (ICD-10-PCS; principal; 2017-11-15)
PROC: 5A12012 Performance of Cardiac Output, Single, Manual (ICD-10-PCS; principal; 2017-11-15)
PROC: 5A1945Z Respiratory Ventilation, 24-96 Consecutive Hours (ICD-10-PCS; principal; 2017-11-15)
PROC: B2111ZZ Fluoroscopy of Multiple Coronary Arteries using Low Osmolar Contrast (ICD-10-PCS; 2017-11-17)
PROC: 4A023N7 Measurement of Cardiac Sampling and Pressure, Left Heart, Percutaneous Approach (ICD-10-PCS; 2017-11-17)
DX: J69.0 Pneumonitis due to inhalation of food and vomit (principal); N17.0 Acute kidney failure with tubular necrosis; K72.00 Acute and subacute hepatic failure without coma; I60.9 Nontraumatic subarachnoid hemorrhage, unspecified; G92 Toxic encephalopathy; I21.4 Non-ST elevation (NSTEMI) myocardial infarction; D65 Disseminated intravascular coagulation [defibrination syndrome]; J96.00 Acute respiratory failure, unspecified whether with hypoxia or hypercapnia; K92.2 Gastrointestinal hemorrhage, unspecified; E87.0 Hyperosmolality and hypernatremia; G93.1 Anoxic brain damage, not elsewhere classified; E87.4 Mixed disorder of acid-base balance; K55.1 Chronic vascular disorders of intestine; K56.7 Ileus, unspecified; I46.9 Cardiac arrest, cause unspecified; R80.9 Proteinuria, unspecified; R31.9 Hematuria, unspecified; E87.6 Hypokalemia; E83.51 Hypocalcemia; E83.42 Hypomagnesemia; E88.09 Other disorders of plasma-protein metabolism, not elsewhere classified; Z79.899 Other long term (current) drug therapy